=== PATIENT | male | born 1950 | race Caucasian/White ===

== ENCOUNTER → 2018-03-16 | Day surgery (SDC) | payer OTHER ==
[~2018-03-16] MED LIST: LISI10TA2 PO; PROPOFOL 60 ML IV ONE
[2018-03-16 17:37] VITALS: BP 115/71
--- NOTE | 2018-03-19 15:09 | PATHOLOGY ---
[facility] Accession Number: [id number] . 01 Material submitted: . PART A: SIGMOID POLYP PART B: ASCENDING COLON MASS BIOPSY . 01 Clinical history: . Screening . 02 Diagnosis: A. Colon biopsies, sigmoid polyp: - Tubulovillous adenoma, fragmented. . B. Colon biopsies, ascending colon mass: - High-grade dysplasia, suspicious for invasion. . - See comment. . (JPM:video editing intern/liza; 03/19/2018) MBR/03/19/2018 . 02 Comment: Sections of the sigoid colon biopsy reveal a tubulovillous adenoma. The adenoma is received in multiple fragments, the three largest of which range from 1.1 up to 1.5 cm in greatest dimension. There is no high-grade dysplasia or evidence of malignancy. . Sections of the ascending colon biopsy focally reveal irregular highly atypical glands associated with an inflamed reactive stroma. There are segments of acute inflammatory exudate consistent with ulceration. There are also segments of inflamed colonic mucosa and small segments of tubular adenoma showing high-grade dysplasia. The findings are suspicious for invasion. The diagnosis was relayed to nurse Tisha Conner on 03/19/2018 at 1pm. The case is also examined by Dr. Dasilva, who concurs with the diagnosis. . (JPM:video editing intern/liza; 03/19/2018) . . . . 02 Electronically signed: . Cem Dasilva MD, Pathologist NPI- [id number] . 01 Gross description: . A. Received in formalin labeled "Jordi Kerns, sigmoid polyp," is a 1.5 x 1.3 x 1.1 cm polypoid piece of gold soft tissue. The margin is inked and the specimen is sectioned perpendicular to the margin and entirely submitted in cassette A1. Additionally received in the same container is a 1.4 x 1.0 x 1.4 cm polypoid piece of gold soft tissue. The margin is inked and the specimen is sectioned perpendicular to the margin and entirely submitted in cassette A2. Also received in the container is a 1.1 x 0.8 x 0.9 cm polypoid piece of gold soft tissue. The margin is inked and the specimen is sectioned perpendicular to the margin and entirely submitted in cassette A3. Additionally received in the container are multiple segments of gold soft tissue measuring 1.5 x 1.1 x 0.4 cm in aggregate dimensions. The specimen is filtered and entirely submitted in cassette A4. . B. Received in formalin labeled "Saumya, Jordi, ascending colon mass BX," are multiple segments of gold soft tissue measuring 1.4 x 0.3 x 0.1 cm in aggregate dimensions. The specimen is filtered and entirely submitted in cassette B1. (TSD; 03/17/2018) TOB/TOB . 02 Pathologist provided ICD-10: D12.5, C18.2 . 02 CPT . 496131, 176706 Specimen Comment: A courtesy copy of this report has been sent to Specimen Comment: [phone], . Specimen Comment: Report sent to / DR BAPTISTE Specimen Comment: A duplicate report has been generated due to demographic updates. Performed at: 01 [facility] [address], [place] [id number] MD Vinod Ascencio MD Phone: [phone] Performed at: 02 [facility] [address] [place], [place] [id number] MD Jose Sagastume MD Phone: [phone]
== END | disposition home or self-care (01) ==
LOC: ENDOS 14:46
PROVIDERS: ATTEND Internal Medicine Gastroenterology
DX: Z12.11 Encounter for screening for malignant neoplasm of colon (principal); D12.5 Benign neoplasm of sigmoid colon; D12.2 Benign neoplasm of ascending colon; K64.0 First degree hemorrhoids; Z88.6 Allergy status to analgesic agent; K21.9 Gastro-esophageal reflux disease without esophagitis; I10 Essential (primary) hypertension; Z72.89 Other problems related to lifestyle; Z72.0 Tobacco use; Z79.899 Other long term (current) drug therapy; Z98.890 Other specified postprocedural states
CPT/HCPCS: 45380; 45381; 45385; 88305; J2704

== ENCOUNTER → 2018-03-22 | Outpatient (CLI) | payer OTHER ==
[2018-03-16 17:37] VITALS: BP 115/71
[~2018-03-22] MED LIST changes: -PROPOFOL 60 ML IV ONE
--- NOTE | 2018-03-22 15:35 | RAD ---
CT chest, abdomen and pelvis 03/22/2018 Clinical indications: Colon mass. COMPARISON: None. TECHNIQUE: Multiple CT images of the chest, abdomen and pelvis were obtained following the intravenous and ministration of 75 mL Omnipaque 300. *One or more of the following individualized dose reduction techniques were utilized for this examination: 1. Automated exposure control. 2. Adjustment of the mA and/or kV according to patient size. 3. Use of iterative reconstruction technique. FINDINGS: CHEST: Heart size is normal without significant pericardial effusion. The thoracic aorta is normal in caliber. Coronary artery calcifications are noted. No axillary or mediastinal or left hilar lymphadenopathy. Upper limits of normal right hilar lymph node measuring 1.0 cm short axis series 2/image 33. No suspicious noncalcified pulmonary nodules. No pleural effusion or pneumothorax. Dextro convex thoracic scoliosis. There are no destructive osseous lesions. Abdomen and pelvis: Liver, gallbladder, spleen, adrenal glands and pancreas unremarkable. There are multiple bilateral renal cysts, the largest on the right and the spirit pole measuring 6 cm. There are additional bilateral renal hypodensities which are too small to definitively characterize. Bilateral nonobstructive nephrolithiasis. Abdominal aorta normal in caliber with mild mixed aortoiliac atheromatous plaque. Major portal veins are patent. No retroperitoneal lymphadenopathy. There is a large circumferential irregular cecal soft tissue mass measuring up to 6.3 cm series 4/image 52 with extramural soft tissue extension inferiorly into the pericecal fat with contact to the right lower quadrant lateral abdominal wall series 4/image 61-63. There are few mildly prominent right lower quadrant pericecal lymph nodes series 4/image 48 and 54. Appendix normal in caliber. No bowel obstruction. No pneumoperitoneum. No abdominal free fluid. Mildly distended unopacified urinary bladder unremarkable. Moderate prostate enlargement. No iliac or inguinal lymphadenopathy. Mild perirectal stranding. Moderate to severe right and moderate left hip osteoarthritis. Levoconvex lumbar scoliosis. IMPRESSION: CHEST: 1. Mildly prominent right hilar lymph node, indeterminate between reactive and rey metastatic disease. 2. No pulmonary metastatic disease. Abdomen and pelvis: 1. Irregular cecal mass with extramural soft tissue extension which abuts the anterior abdominal wall. 2. Mild prominent pericecal lymph nodes, concerning for local rey metastatic disease. 3. Otherwise, no evidence of hepatic metastatic disease. 4. Multiple bilateral renal cysts and nephrolithiasis. 5. Moderate prostate enlargement. Correlation with PSA is recommended. 6. Mild perirectal stranding, may be reactive due to recent endoscopy, though nonspecific infectious/inflammatory proctitis is not excluded. Clinical correlation is recommended. Electronically signed by: Clif Lau MD (03/22/2018 3:31 PM) [id number]
== END | disposition home or self-care (01) ==
LOC: CT 08:55
PROVIDERS: ATTEND Internal Medicine Hematology & Oncology
DX: C18.7 Malignant neoplasm of sigmoid colon (principal); N40.0 Benign prostatic hyperplasia without lower urinary tract symptoms; N28.1 Cyst of kidney, acquired; N20.0 Calculus of kidney; M16.12 Unilateral primary osteoarthritis, left hip; M41.86 Other forms of scoliosis, lumbar region; I70.0 Atherosclerosis of aorta; I25.10 Atherosclerotic heart disease of native coronary artery without angina pectoris
CPT/HCPCS: 71260

== ENCOUNTER → 2018-10-15 | Outpatient (CLI) | payer OTHER ==
[2018-04-11 11:00] VITALS: BP 125/78
[~2018-10-15] MED LIST changes: +CETI10TA22 PO; +DOCU-109 PO; +LISI1TAB3 PO; +OXYC1TAB15 PO
--- NOTE | 2018-10-15 12:49 | RAD ---
Examination: MRI of the right knee without contrast HISTORY: History of chronic right knee pain COMPARISON: None available. FINDINGS: The anterior cruciate ligament, posterior cruciate ligament appear intact. There is blunting of the posterior horn of the medial meniscus. There is complete attenuation of the body of the medial meniscus. The lateral meniscus appears intact. Medial collateral ligament is intact. The lateral collateral ligamentous complex intact including the fibular collateral ligament, biceps femoris tendon, popliteus tendon appear intact. The medial, lateral retinaculum appear intact. Large knee joint effusion is identified. Complete cartilage loss identified in the medial compartment particularly in the weightbearing portion. There is deep fissuring of cartilage identified in the lateral, patellofemoral compartments. Moderate knee joint effusion. Large osteophyte formation identified in the medial compartment. Moderate size osteophyte formation identified in the lateral, patellofemoral compartments. The medial retinaculum, lateral retinaculum appear intact. IMPRESSION: 1. Complete attenuation of the body of the medial meniscus with blunting of the posterior horn of the medial meniscus could be old tear or degeneration. 2. Tricompartmental degenerative changes, most severe in the medial compartment. 3. Moderate knee joint effusion. Electronically signed by: Ramon High MD (10/15/2018 12:46 PM) [facility]
== END | disposition home or self-care (01) ==
LOC: MRI 10:35
PROVIDERS: ATTEND Family Medicine
DX: M17.11 Unilateral primary osteoarthritis, right knee (principal); M25.461 Effusion, right knee; M25.761 Osteophyte, right knee
CPT/HCPCS: 73721

== ENCOUNTER → 2019-04-01 | Outpatient (CLI) | payer OTHER ==
[2018-04-11 11:00] VITALS: BP 125/78
[~2019-04-01] MED LIST changes: +CONTRAST GIVEN. MC PRN; +IOHEXOL 300 MG/ML 100ML VIAL. IV ONE; +LISI1TAB23 PO; -LISI1TAB3 PO
[2019-04-01 09:09] LABS: BASO # 0.1 x10^3/uL (0.0-0.2); BASO % 0 % (0-3); EOS # 0.8 x10^3/uL (0.0-0.7); EOS % 6 % (0-3); HEMATOCRIT 48.2 % (39.0-53.0); HEMOGLOBIN 16.3 g/dL (13.0-17.5); LYMPH # 3.6 x10^3/uL (1.0-4.8); LYMPH % 27 % (24-48); MEAN CORPUSCULAR HEMOGLOBIN 30 pg (25-35); MEAN CORPUSCULAR HGB CONC 34 g/dL (31-37); MEAN CORPUSCULAR VOLUME 90 fL (79-100); MONO # 1.1 x10^3/uL (0.0-1.1); MONO % 8 % (0-9); NEUT # 7.9 x10^3/uL (1.8-7.7); NEUT % 59 % (31-73); PLATELET COUNT 339 x10^3/uL (140-400); RED BLOOD COUNT 5.35 x10^6/uL (4.30-5.70); RED CELL DISTRIBUTION WIDTH 13.8 % (11.5-14.5); WHITE BLOOD COUNT 13.5 x10^3/uL (4.0-11.0)
[2019-04-01 09:31] LABS: ALBUMIN 4.1 g/dL (3.4-5.0); ALBUMIN/GLOBULIN RATIO 0.9 (1.0-1.7); CALCIUM 9.5 mg/dL (8.5-10.1); CREATININE 1.4 mg/dL (0.7-1.3); GFR 50.7; TOTAL BILIRUBIN 0.4 mg/dL (0.2-1.0); TOTAL PROTEIN 8.5 g/dL (6.4-8.2)
--- NOTE | 2019-04-01 19:47 | RAD ---
Examination: CT CHEST W/CONTRAST History: Abnormal mediastinal lymph node. Colon cancer. Comparison/Correlation: 03/22/2018 CT chest abdomen and pelvis with contrast, 09/28/2018 CT chest abdomen and pelvis with contrast Findings: Axial images of the chest were obtained following IV contrast. Sagittal and coronal reformatted images were provided. Aortopulmonary window lymph node measuring up to 1 cm short axis diameter is present but the hilum is delineated and unremarkable. No significant change compared 03/22/2018 CT chest with contrast.. Nonenlarged right paratracheal lymph nodes are present. Other nonenlarged superior mediastinal lymph nodes are present and smaller in size. Nonenlarged bilateral axillary lymph nodes are present. Linear atelectasis or scarring at the posterior right lung base is present. Mild bronchial wall thickening of the lower lung elizondo may represent mild chronic bronchitis. Partially visualized upper abdomen is unremarkable other than multiple right renal cysts and smaller lesions involving the left kidney which are probably cysts but too small to optimally assess. Reversal of thoracic kyphosis is evident similar to prior exam. Impression: No change in thoracic lymph nodes compared to 03/22/2018. No new lymph nodes or suspicious change. Minimal linear scarring or atelectasis at the right lung field is greater as compared to 09/28/2018. No suspicious mass delineated PQRS Compliance Statement: One or more of the following individualized dose reduction techniques were utilized for this examination: 1. Automated exposure control 2. Adjustment of the mA and/or kV according to patient size 3. Use of iterative reconstruction technique Electronically signed by: Surya Breen MD (04/01/2019 7:44 PM) [facility]
== END ==
LOC: CT 08:39
PROVIDERS: ATTEND Internal Medicine Hematology & Oncology
DX: C18.2 Malignant neoplasm of ascending colon (principal); M40.294 Other kyphosis, thoracic region; N28.1 Cyst of kidney, acquired; F17.200 Nicotine dependence, unspecified, uncomplicated; K21.9 Gastro-esophageal reflux disease without esophagitis; I12.9 Hypertensive chronic kidney disease with stage 1 through stage 4 chronic kidney disease, or unspecified chronic kidney disease; N18.9 Chronic kidney disease, unspecified
CPT/HCPCS: 36415; 71260; 80053; 82378; 85025; Q9967

== ENCOUNTER → 2019-06-29 | Day surgery (SDC) | payer MEDICARE ==
[~2019-06-29] MED LIST changes: -CETI10TA22 PO; +CETI10TA24 PO; -CONTRAST GIVEN. MC PRN; -IOHEXOL 300 MG/ML 100ML VIAL. IV ONE; +IV RINGERS,LACTATED 1000ML 1,000 ML IV SCH; +LIDOCAINE 2% PF 5 ML VIAL. ONE; +PROPOFOL 20 ML IV ONE
[2019-06-29 08:59] VITALS: BP 118/76
--- NOTE | 2019-06-29 10:28 | CONS ---
DATE OF CONSULTATION: 06/29/2019 REFERRING PHYSICIAN: Shana Brown MD REASON: Followup on colon cancer. HISTORY OF PRESENT ILLNESS: A 68-year-old male with past medical history significant for colon cancer, high blood pressure, seen for interval colon exam. The patient underwent ascending colon resection, has done well since with negative margins. Bowel habits are regular. There has been no bleeding. Weight and appetite are stable. He is otherwise without additional complaints. PAST MEDICAL HISTORY: Colon cancer and hypertension. ALLERGIES: TRAMADOL. MEDICATIONS: Include Zyrtec, lisinopril, hydrochlorothiazide. FAMILY HISTORY: Noncontributory. SOCIAL HISTORY: He is a social drinker and smoker. PAST SURGICAL HISTORY: Significant for back surgery and colon resection. REVIEW OF SYSTEMS: Per records. PHYSICAL EXAMINATION: GENERAL: Reveals a well-nourished, well-developed male. VITAL SIGNS: Temperature is 98, pulse 112, respirations 20. LUNGS: Clear. CARDIOVASCULAR: Reveals an S1, S2 without S3, S4 or appreciable murmur. ABDOMEN: Reveals a soft abdomen, normal bowel sounds, without appreciable hepatosplenomegaly. EXTREMITIES: Reveals no cyanosis, clubbing or edema. IMPRESSION: History of colon cancer, status post resection. Interval exam is recommended. Risks and benefits of procedure including risk of perforation have been discussed. The patient is willing to proceed at this time. LIO FULTON MD DR: INO/raleigh JOB#: [id number] / [id number]
--- NOTE | 2019-06-30 14:07 | PATHOLOGY ---
[facility] Accession Number: [id number] . 01 Material submitted: . sigmoid colon - SIGMOID POLYP . 01 Clinical history: . History of colorectal cancer . 02 Diagnosis: Sigmoid colon polypectomy: - Tubulovillous adenoma, predominantly tubular. (JPM:liza; 06/30/2019) S 06/30/2019 0959 Local . 02 Comment: There is no high grade dysplasia or evidence of malignancy. The base of the polyp is lined by colonic mucosa showing coagulative changes. (JPM:liza; 06/30/2019) . 02 Electronically signed: . Jose Sagastume MD, Pathologist NPI- [id number] . 01 Gross description: . The specimen is received in formalin, labeled "Jordi Kerns, sigmoid polyp". Received is a segment of dark brown soft tissue measuring 1.0 x 0.8 x 0.8 cm in greatest dimensions. The surgical margin is inked. The specimen is trisected perpendicular to the margin and entirely submitted in cassette A1. ([facility]; 06/29/2019) QA/QA 06/29/2019 1525 Local . 02 Pathologist provided ICD-10: D12.5 . 02 CPT . 785399 Specimen Comment: A courtesy copy of this report has been sent to [phone], [phone] Specimen Comment: [id number] Specimen Comment: Report sent to / DR PATTERSON Performed at: 01 [facility] [address], [place] [id number] MD Vinod Ascencio MD Phone: [phone] Performed at: 02 [facility] [address] [place], [place] [id number] MD Jose Sagastume MD Phone: [phone]
== END | disposition home or self-care (01) ==
LOC: ENDOS 07:20
PROVIDERS: ATTEND Internal Medicine Gastroenterology
DX: Z12.11 Encounter for screening for malignant neoplasm of colon (principal); D12.5 Benign neoplasm of sigmoid colon; K64.0 First degree hemorrhoids; K57.30 Diverticulosis of large intestine without perforation or abscess without bleeding; I10 Essential (primary) hypertension; F17.200 Nicotine dependence, unspecified, uncomplicated; Z88.6 Allergy status to analgesic agent; Z85.038 Personal history of other malignant neoplasm of large intestine; Z72.89 Other problems related to lifestyle; Z90.49 Acquired absence of other specified parts of digestive tract
CPT/HCPCS: 45385; 88305; J2001; J2704; 45382

== ENCOUNTER 2019-12-12 17:29 | Emergency (ER) | payer MEDICARE ==
[~2019-12-12] VITALS: Ht 182.9 cm; Wt 88.6 kg
[~2019-12-12 17:29] MED LIST changes: -CETI10TA24 PO; +CETI10TA74 PO; -IV RINGERS,LACTATED 1000ML 1,000 ML IV SCH; -LIDOCAINE 2% PF 5 ML VIAL. ONE; -PROPOFOL 20 ML IV ONE
[2019-12-12] MEDS ORDERED: HYDROcodone/APAP 5/325MG 1 TAB TABLET PO ONE (18:30)
[2019-12-12 18:46] LABS: BASO # 0.1 x10^3/uL (0.0-0.2); BASO % 0 % (0-3); EOS # 0.6 x10^3/uL (0.0-0.7); EOS % 4 % (0-3); HEMATOCRIT 45.2 % (39.0-53.0); HEMOGLOBIN 15.6 g/dL (13.0-17.5); LYMPH # 2.7 x10^3/uL (1.0-4.8); LYMPH % 18 % (24-48); MEAN CORPUSCULAR HEMOGLOBIN 31 pg (25-35); MEAN CORPUSCULAR HGB CONC 35 g/dL (31-37); MEAN CORPUSCULAR VOLUME 89 fL (79-100); MONO % 7 % (0-9); NEUT # 10.7 x10^3/uL (1.8-7.7); NEUT % 71 % (31-73); PLATELET COUNT 393 x10^3/uL (140-400); RED BLOOD COUNT 5.09 x10^6/uL (4.30-5.70); RED CELL DISTRIBUTION WIDTH 13.9 % (11.5-14.5)
--- NOTE | 2019-12-12 18:46 | PHYS DOC ---
Past Medical History Past Medical History: Hypertension Past Surgical History: No Surgical History Smoking Status: Current Every Day Smoker Alcohol Use: None General Adult EDM: Chief Complaint: KNEE INJURY HPI: HPI: The history was obtained from the patient. Patient is a 69-year-old male with PMH chronic osteoarthritis, hypertension who presents with a chief complaint of right knee pain. Patient states he has had right knee pain for several months to years. He states the pain seemed to have worsened approximately 6 days ago. Denies trauma or injury. States he was seen at his primary care physician's office where x-rays were performed. He states he was told that he has "[id number]." He states he was given some sort of intramuscular injection that did relieve his pain temporarily. He is unsure the name of this medication. Denies any joint injection. Denies history of joint replacement. Denies fevers. Does note some swelling to the right knee and right foot. Denies overlying redness. States he is able to ambulate with the assistance of a walker. He states this is not a change from his baseline. Denies syncope. States he has not followed up with an orthopedist. States he has tried Tylenol 3 at home with minimal relief. States the pain is aching in nature. States he is unable to extend his right knee completely however he states this is not abnormal for him. He has no other complaints Review of Systems: Review of Systems: Constitutional: Denies fever or chills. [] Eyes: Denies change in visual acuity. [] HENT: Denies nasal congestion or sore throat. [] Respiratory: Denies cough or shortness of breath. [] Cardiovascular: Denies chest pain or edema. [] GI: Denies abdominal pain, nausea, vomiting, bloody stools or diarrhea. [] : Denies dysuria. [] Musculoskeletal: Positive for joint pain Integument: Denies rash. [] Neurologic: Denies headache, focal weakness or sensory changes. [] Endocrine: Denies polyuria or polydipsia. [] Lymphatic: Denies swollen glands. [] Psychiatric: Denies depression or anxiety. [] Heart Score: Risk Factors: Risk Factors: DM, Current or recent (<one month) smoker, HTN, HLP, family history of CAD, obesity. Risk Scores: Score 0 - 3: 2.5% MACE over next 6 weeks - Discharge Home Score 4 - 6: 20.3% MACE over next 6 weeks - Admit for Clinical Observation Score 7 - 10: 72.7% MACE over next 6 weeks - Early Invasive Strategies Current Medications: Current Medications Medications (Trade) Dose Ordered Sig/[facility] Start Time Stop Time Status Last Admin Dose Admin Acetaminophen/ Hydrocodone Bitart (Lortab 5/325) 2 tab 1X ONCE 12/12/19 18:30 12/12/19 18:31 DC Allergies: Allergies: Allergies Coded Allergies Type Severity Reaction Last Updated Verified tramadol Allergy Intermediate Rash 06/29/19 Yes Physical Exam: PE: Constitutional: Well developed, well nourished, no acute distress, non-toxic appearance. [] HENT: Normocephalic, atraumatic, bilateral external ears normal, oropharynx moist, no oral exudates, nose normal. [] Eyes: PERRLA, EOMI, conjunctiva normal, no discharge. [] Neck: Normal range of motion, no tenderness, supple, no stridor. [] Cardiovascular:Heart rate regular rhythm, no murmur +1-4 pitting edema in the right foot Lungs & Thorax: Bilateral breath sounds clear to auscultation [] Abdomen: Bowel sounds normal, soft, no tenderness, no masses, no pulsatile masses. [] Skin: Warm, dry, no erythema, no rash. [] Back: No tenderness, no CVA tenderness. [] Extremities: R Knee Erythema not present. Warmth not present. Effusion present. Anterior drawer is intact. Posterior drawer is intact. Varus testing is intact. Valgus testing is intact. Knee extension is limited secondary to pain. (baseline). DNVI (DP pulse 2+, plantar and dorsiflexion intact, light touch intact). Neurologic: Alert and oriented X 3, normal motor function, normal sensory function, no focal deficits noted. [] Psychologic: Affect normal, judgement normal, mood normal. [] Current Patient Data: Labs: Laboratory Tests Test 12/12/19 18:35 12/12/19 20:33 White Blood Count 15.0 x10^3/uL Red Blood Count 5.09 x10^6/uL Hemoglobin 15.6 g/dL Hematocrit 45.2 % Mean Corpuscular Volume 89 fL Mean Corpuscular Hemoglobin 31 pg Mean Corpuscular Hemoglobin Concent 35 g/dL Red Cell Distribution Width 13.9 % Platelet Count 393 x10^3/uL Neutrophils (%) (Auto) 71 % Lymphocytes (%) (Auto) 18 % Monocytes (%) (Auto) 7 % Eosinophils (%) (Auto) 4 % Basophils (%) (Auto) 0 % Neutrophils # (Auto) 10.7 x10^3/uL Lymphocytes # (Auto) 2.7 x10^3/uL Monocytes # (Auto) 1.0 x10^3/uL Eosinophils # (Auto) 0.6 x10^3/uL Basophils # (Auto) 0.1 x10^3/uL Sodium Level 140 mmol/L Potassium Level 4.1 mmol/L Chloride Level 101 mmol/L Carbon Dioxide Level 29 mmol/L Anion Gap 10 Blood Urea Nitrogen 19 mg/dL Creatinine 1.4 mg/dL Estimated GFR (Cockcroft-Gault) 50.5 Glucose Level 93 mg/dL Calcium Level 9.2 mg/dL C-Reactive Protein, Quantitative 15.2 mg/L LY-Zpm-E-Type Natriuretic Peptide 110 pg/mL Body Fluid Source Synovial Body Fluid Color Red Body Fluid Clarity Turbid Body Fluid Nucleated Cells 800 /cmm Body Fluid Mononuclear WBCs (%) 44 % Body Fluid Polymorphonuclear Cells 56 % Body Fluid Total RBCs Counted 74454 /cmm Current Medications Medications (Trade) Dose Ordered Sig/Sarah Route PRN Reason Start Time Stop Time Status Last Admin Dose Admin Acetaminophen/ Hydrocodone Bitart (Lortab 5/325) 2 tab 1X ONCE PO 12/12/19 18:30 12/12/19 18:31 DC 12/12/19 18:43 Iohexol (Omnipaque 300 Mg/ml) 60 ml 1X ONCE IV 12/12/19 19:00 12/12/19 19:03 DC 12/12/19 19:23 Info (CONTRAST GIVEN -- Rx MONITORING) 1 each PRN DAILY PRN MC SEE COMMENTS 12/12/19 19:15 12/14/19 19:14 Vital Signs: Vital Signs Date Time Temp Pulse Resp B/P (MAP) Pulse Ox O2 Delivery O2 Flow Rate FiO2 12/12/19 17:44 98.0 96 20 153/87 (109) 95 Room Air 98.0 EKG: EKG: [] Radiology/Procedures: Radiology/Procedures: The indication, was to rule-out septic arthritis of the knee, as well as to further evaluate for the cause of the patient's effusion, such as gout or pseudogout. The risks (infection, bleeding, pain, etc) and the benefits were discussed with the patient, and verbal consent was given to proceed. Prior to the procedure, I placed LET over the lateral aspect of the knee, towards the inferior edge of the patella, and about 1 cm lateral.. The appropriate land lee were identified. Once the skin was anesthetized, the skin area was sterilized with Betadine. Then using a sterile 18g needle, and sterile technique, I then inserted the needle, while withdrawing on the syringe plunger. 10 mLs of serosanguineous synovial fluid was obtained. This was sent down to the lab for joint analysis, as well as for culture. A dressing was placed, and the patient tolerated the procedure well. My repeat neurovascular exam post-procedure was unchanged. Instructions were given to seek immediate care for increasing pain, increasing redness, streaking, or any other worrisome concerns. [facility] [address] [place] [address] IMAGING REPORT Signed PATIENT: CHARLY SY ACCOUNT: [id number] : 1950 LOCATION: ER AGE: 69 SEX: M EXAM STATUS: REG ER ORD. PHYSICIAN: ANUSHA RUGGIERO DO REASON: RLE swelling PROCEDURE: VENOUS LOWER EXTREMITY RIGHT VENOUS LOWER EXTREMITY RIGHT History: Reason: RLE swelling / Spl. Instructions: / History: Comparison: None. Discussion: Multiple longitudinal and transverse high resolution real-time images of the venous system of right lower extremity were obtained with color and Doppler sampling. The common femoral, superficial femoral, popliteal and proximal calf veins are all patent and demonstrate normal flow and compressibility. Normal respiratory phasicity and augmentation is present. Fluid collection superior medial to the patella measures approximately 6.2 x 1.9 cm. Impression: 1. No evidence of deep vein thrombosis. 2. Nonspecific fluid collection superior and medial to the patella. Recommend correlation for infection to rule out abscess. Electronically signed by: Dewayne Galaviz DO (12/12/2019 7:24 PM) [facility] DICTATED and SIGNED BY: DEWAYNE GALAVIZ DO DATE: 12/12/191923 [facility] [address] [place] [address] IMAGING REPORT Signed PATIENT: CHARLY SY ACCOUNT: [id number] : 1950 LOCATION: ER AGE: 69 SEX: M EXAM STATUS: REG ER ORD. PHYSICIAN: ANUSHA RUGGIERO DO REASON: RLE swelling and redness from knee downward PROCEDURE: CT LOW EXTREMITY W/CONTRAST RT CT LOW EXTREMITY W/CONTRAST RT History: Reason: RLE swelling and redness from knee downward / Spl. Instructions: OMNI 300 INJ 60 MLS / History: Comparison: None. Technique: CT imaging was performed of the right lower extremity with contrast. Coronal and sagittal reconstructions were performed. Exposure: One or more of the following individualized dose reduction techniques were utilized for this examination: 1. Automated exposure control 2. Adjustment of the mA and/or kV according to patient size 3. Use of iterative reconstruction technique. Findings: Moderate knee joint effusion corresponding with ultrasound fluid collection. Advanced knee degenerative changes most prominent within the medial and patellofemoral compartments. Normal alignment. No fracture. Mild tendinous structures are grossly intact. Distal lower extremity subcutaneous edema. No fluid collection to suggest abscess. Impression: 1. Mild distal lower extremity subcutaneous edema. No subcutaneous fluid collection to suggest abscess. 2. Moderate knee joint effusion. 3. Advanced right knee DJD. Electronically signed by: Dewayne Galaviz DO (12/12/2019 7:49 PM) [facility] DICTATED and SIGNED BY: DEWAYNE GALAVIZ DO DATE: 12/12/191948 Course & Med Decision Making: Course & Med Decision Making Pertinent Labs and Imaging studies reviewed. (See chart for details) Patient is a 69-year-old male who presents with chief complaint of acute on chronic right knee pain. Initial vital signs unremarkable. Physical exam noted above. CT imaging of the right lower extremity was obtained to evaluate for potential infection. This was negative for fluid collection. Clinically the patient does have very mild early cellulitis of the dorsal aspect of his right foot. Right knee did have limitations in range of motion. Furthermore he did have a mild leukocytosis of 15,000 with moderate knee joint effusion appreciated. Right knee arthrocentesis was performed. Synovial fluid analysis not consistent with septic arthritis. Likely inflammatory nature secondary to his arthritis. Pain was well controlled in the emergency department. He is able to ambulate. I do feel is reasonable to discharge patient home with close follow-up. Synovial fluid cultures are pending. He will be discharged home with short course of Keflex for his early cellulitis. He was instructed to follow-up with his primary care physician and will be given referral to an orthopedic surgeon for potential knee replacement in the future. Return precautions discussed and understood by patient and . Patient agreeable to plan. Stable for discharge home. Dragon Disclaimer: Dragon Disclaimer: This electronic medical record was generated, in whole or in part, using a voice recognition dictation system. Departure Departure Impression: Primary Impression: Right knee pain Qualified Codes: M25.561 - Pain in right knee Additional Impression: Cellulitis of right foot Referrals: BHANU PATTERSON MD (PCP) MITCHELL DODGE MD Patient Instructions: Cellulitis Additional Instructions: Please follow-up with your primary care physician in the next 2 to 3 days. Scripts Cephalexin (KEFLEX) 500 Mg Capsule 1 CAP PO BID for 7 Days, #14 CAP 0 Refills Prov: ANUSHA RUGGIERO DO 12/12/19 Hydrocodone/Apap 5-325 (NORCO 5-325 TABLET) 1 Each Tablet 1-2 EACH PO PRN Q6HRS PRN for PAIN, #10 as needed for pain Prov: ANUSHA RUGGIERO DO 12/12/19 Justicifation of Admission Dx: Justifications for Admission: Justification of Admission Dx: N/A ANUSHA RUGGIERO DO Dec 12, 2019 18:46
[2019-12-12 18:53] LABS: CALCIUM 9.2 mg/dL (8.5-10.1); CREATININE 1.4 mg/dL (0.7-1.3); GFR 50.5; POTASSIUM 4.1 mmol/L (3.5-5.1)
[2019-12-12] MEDS ORDERED: IOHEXOL 300 MG/ML 100ML VIAL. IV ONE (19:00)
[2019-12-12] MEDS ORDERED: CONTRAST GIVEN. MC PRN (19:15)
--- NOTE | 2019-12-12 19:26 | RAD ---
VENOUS LOWER EXTREMITY RIGHT History: Reason: RLE swelling / Spl. Instructions: / History: Comparison: None. Discussion: Multiple longitudinal and transverse high resolution real-time images of the venous system of right lower extremity were obtained with color and Doppler sampling. The common femoral, superficial femoral, popliteal and proximal calf veins are all patent and demonstrate normal flow and compressibility. Normal respiratory phasicity and augmentation is present. Fluid collection superior medial to the patella measures approximately 6.2 x 1.9 cm. Impression: 1. No evidence of deep vein thrombosis. 2. Nonspecific fluid collection superior and medial to the patella. Recommend correlation for infection to rule out abscess. Electronically signed by: Dewayne Galaviz DO (12/12/2019 7:24 PM) [facility]
--- NOTE | 2019-12-12 19:52 | RAD ---
CT LOW EXTREMITY W/CONTRAST RT History: Reason: RLE swelling and redness from knee downward / Spl. Instructions: OMNI 300 INJ 60 MLS / History: Comparison: None. Technique: CT imaging was performed of the right lower extremity with contrast. Coronal and sagittal reconstructions were performed. Exposure: One or more of the following individualized dose reduction techniques were utilized for this examination: 1. Automated exposure control 2. Adjustment of the mA and/or kV according to patient size 3. Use of iterative reconstruction technique. Findings: Moderate knee joint effusion corresponding with ultrasound fluid collection. Advanced knee degenerative changes most prominent within the medial and patellofemoral compartments. Normal alignment. No fracture. Mild tendinous structures are grossly intact. Distal lower extremity subcutaneous edema. No fluid collection to suggest abscess. Impression: 1. Mild distal lower extremity subcutaneous edema. No subcutaneous fluid collection to suggest abscess. 2. Moderate knee joint effusion. 3. Advanced right knee DJD. Electronically signed by: Dewayne Galaviz DO (12/12/2019 7:49 PM) [facility]
[2019-12-12 21:33] LABS: BF CLARITY TURBID; BF COLOR RED; BF MON % 44 %; BF PMN % 56 %; BF RBC COUNT 18500 /cmm (Not Established); BF SOURCE SYNOVIAL; BF WBC COUNT 800 /cmm (Not Established)
[2019-12-12] MEDS ORDERED: HYDR-3164 PO (21:46)
[2019-12-12] MEDS ORDERED: CEPH-264 PO (21:46)
[2019-12-12 22:29] VITALS: BP 156/80
== END 2019-12-12 22:35 | disposition home or self-care (01) ==
LOC: ER 17:29
DX: M25.561 Pain in right knee (principal); L03.115 Cellulitis of right lower limb; G89.29 Other chronic pain; M17.11 Unilateral primary osteoarthritis, right knee; I10 Essential (primary) hypertension; F17.200 Nicotine dependence, unspecified, uncomplicated; Z88.6 Allergy status to analgesic agent
CPT/HCPCS: 20610; 36415; 73701; 80048; 83880; 85025; 86140; 87070; 89050; 93971; 99285; Q9967

== ENCOUNTER 2020-07-07 09:47 | Emergency (ER) | payer MEDICARE ==
[~2020-07-07] VITALS: Ht 182.9 cm; Wt 90.0 kg
[~2020-07-07 09:47] MED LIST changes: +CEPH-264 PO; +HYDR-3164 PO; +LISI10TA16 PO; -LISI10TA2 PO
[2020-07-07 10:00] VITALS: BP 168/84
[2020-07-07] MEDS ORDERED: IPRATRPIUM/ALBUTEROL 0.5/2.5MG 3 ML NEBU. NEB ONE (10:30)
[2020-07-07 10:39] LABS: BASO % 0 % (0-3); EOS # 0.6 x10^3/uL (0.0-0.7); EOS % 5 % (0-3); HEMATOCRIT 49.2 % (39.0-53.0); HEMOGLOBIN 16.4 g/dL (13.0-17.5); LYMPH # 2.2 x10^3/uL (1.0-4.8); LYMPH % 16 % (24-48); MEAN CORPUSCULAR HEMOGLOBIN 30 pg (25-35); MEAN CORPUSCULAR HGB CONC 33 g/dL (31-37); MEAN CORPUSCULAR VOLUME 91 fL (79-100); MONO # 1.1 x10^3/uL (0.0-1.1); MONO % 9 % (0-9); NEUT # 9.2 x10^3/uL (1.8-7.7); NEUT % 70 % (31-73); PLATELET COUNT 317 x10^3/uL (140-400); RED BLOOD COUNT 5.43 x10^6/uL (4.30-5.70); RED CELL DISTRIBUTION WIDTH 14.4 % (11.5-14.5); WHITE BLOOD COUNT 13.2 x10^3/uL (4.0-11.0)
[2020-07-07 10:51] LABS: CALCIUM 8.9 mg/dL (8.5-10.1); CREATININE 1.3 mg/dL (0.7-1.3); GFR 55.1; POTASSIUM 4.1 mmol/L (3.5-5.1)
[2020-07-07 10:55] LABS: INFLUENZA A PATIENT NEGATIVE (NEGATIVE); INFLUENZA B PATIENT NEGATIVE (NEGATIVE)
[2020-07-07 10:57] LABS: TOTAL BILIRUBIN 0.7 mg/dL (0.2-1.0)
--- NOTE | 2020-07-07 10:59 | RAD ---
Exam performed: One view chest. Indication: Reason: SOB / Spl. Instructions: / History: Date of Service: 07/07/2020 10:31 AM Comparison: None available CT chest from April 01, 2019. Single AP upright portable view chest findings: Cardiomediastinal silhouette is within limits of normal. Lungs are somewhat hyperinflated. No acute i nfiltrates, effusion or pneumothorax is detected. The bony structures are normal. Impression: No acute cardiopulmonary process is detected. Electronically signed by: Catina Newton MD (07/07/2020 10:56 AM) [id number]
--- NOTE | 2020-07-07 11:03 | PHYS DOC ---
Past Medical History Past Medical History: COPD, Heart Disease, Hypertension, Kidney Stone Additional Past Medical Histor: COLON CA Past Surgical History: Appendectomy, Cancer Surgery Smoking Status: Current Every Day Smoker Alcohol Use: None Adult General Chief Complaint Chief Complaint: SHORTNESS OF BREATH [facility] HPI Patient is a 69 year old male with past medical history of COPD and hypertensio n now presents emergency department complaint of new onset of shortness of breath. Patient states over the last 3 days he has had a new onset of flulike illness which consists of new onset of mild intermittent nonproductive cough as well as an intermittent sensation of shortness of breath. Patient states over the last 2 days he has noted that he has been having worsening sensations of shortness of breath primarily when he lays down for sleep. States that this morning at approximately 2 AM he was woken up with a coughing fit and was having difficulty catching his breath. Currently denying any chest pain, dizziness, lightheadedness, fever or chills. Review of Systems Review of Systems Constitutional: Denies fever or chills [] Eyes: Denies change in visual acuity, redness, or eye pain [] HENT: Denies nasal congestion or sore throat [] Respiratory: Denies cough or shortness of breath [] Cardiovascular: No additional information not addressed in HPI [] GI: Denies abdominal pain, nausea, vomiting, bloody stools or diarrhea [] : Denies dysuria or hematuria [] Musculoskeletal: Denies back pain or joint pain [] Integument: Denies rash or skin lesions [] Neurologic: Denies headache, focal weakness or sensory changes [] Endocrine: Denies polyuria or polydipsia [] All other systems were reviewed and found to be within normal limits, except as documented in this note. Current Medications Current Medications Current Medications Medications (Trade) Dose Ordered Sig/Sarah Start Time Stop Time Status Last Admin Dose Admin Albuterol/ Ipratropium (Duoneb) 3 ml 1X ONCE 07/07/20 10:30 07/07/20 10:31 DC 07/07/20 10:52 3 ML Allergies Allergies Allergies Coded Allergies Type Severity Reaction Last Updated Verified tramadol Allergy Intermediate Rash 06/29/19 Yes Physical Exam Physical Exam Constitutional: Well developed, well nourished, no acute distress, non-toxic appearance. [] HENT: Normocephalic, atraumatic, bilateral external ears normal, oropharynx moist, no oral exudates, nose normal. [] Eyes: PERRLA, EOMI, conjunctiva normal, no discharge. [] Neck: Normal range of motion, no tenderness, supple, no stridor. [] Cardiovascular:Heart rate regular rhythm, no murmur [] Lungs & Thorax: Bilateral breath sounds clear to auscultation [] Abdomen: Bowel sounds normal, soft, no tenderness, no masses, no pulsatile masses. [] Skin: Warm, dry, no erythema, no rash. [] Back: No tenderness, no CVA tenderness. [] Extremities: No tenderness, no cyanosis, no clubbing, ROM intact, no edema. [] Neurologic: Alert and oriented X 3, normal motor function, normal sensory function, no focal deficits noted. [] Psychologic: Affect normal, judgement normal, mood normal. [] Current Patient Data Vital Signs Vital Signs Date Time Temp Pulse Resp B/P (MAP) Pulse Ox O2 Delivery O2 Flow Rate FiO2 07/07/20 10:53 98 Room Air 07/07/20 10:00 97.9 24 168/84 (112) 97.9 Lab Values Laboratory Tests Test 07/07/20 10:05 07/07/20 10:14 Influenza Type A Antigen Negative (NEGATIVE) Influenza Type B Antigen Negative (NEGATIVE) White Blood Count 13.2 x10^3/uL (4.0-11.0) H Red Blood Count 5.43 x10^6/uL (4.30-5.70) Hemoglobin 16.4 g/dL (13.0-17.5) Hematocrit 49.2 % (39.0-53.0) Mean Corpuscular Volume 91 fL (79-100) Mean Corpuscular Hemoglobin 30 pg (25-35) Mean Corpuscular Hemoglobin Concent 33 g/dL (31-37) Red Cell Distribution Width 14.4 % (11.5-14.5) Platelet Count 317 x10^3/uL (140-400) Neutrophils (%) (Auto) 70 % (31-73) Lymphocytes (%) (Auto) 16 % (24-48) L Monocytes (%) (Auto) 9 % (0-9) Eosinophils (%) (Auto) 5 % (0-3) H Basophils (%) (Auto) 0 % (0-3) Neutrophils # (Auto) 9.2 x10^3/uL (1.8-7.7) H Lymphocytes # (Auto) 2.2 x10^3/uL (1.0-4.8) Monocytes # (Auto) 1.1 x10^3/uL (0.0-1.1) Eosinophils # (Auto) 0.6 x10^3/uL (0.0-0.7) Basophils # (Auto) 0.0 x10^3/uL (0.0-0.2) Sodium Level 142 mmol/L (136-145) Potassium Level 4.1 mmol/L (3.5-5.1) Chloride Level 103 mmol/L (98-107) Carbon Dioxide Level 28 mmol/L (21-32) Anion Gap 11 (6-14) Blood Urea Nitrogen 18 mg/dL (8-26) Creatinine 1.3 mg/dL (0.7-1.3) Estimated GFR (Cockcroft-Gault) 55.1 BUN/Creatinine Ratio 14 (6-20) Glucose Level 102 mg/dL (70-99) H Calcium Level 8.9 mg/dL (8.5-10.1) Total Bilirubin 0.7 mg/dL (0.2-1.0) Aspartate Amino Transferase (AST) 19 U/L (15-37) Alanine Aminotransferase (ALT) 29 U/L (16-63) Alkaline Phosphatase 95 U/L (46-116) Creatine Kinase 95 U/L (39-308) Troponin I Quantitative < 0.017 ng/mL (0.000-0.055) FY-Hou-Q-Type Natriuretic Peptide 60 pg/mL (0-124) Total Protein 8.0 g/dL (6.4-8.2) Albumin 4.0 g/dL (3.4-5.0) Albumin/Globulin Ratio 1.0 (1.0-1.7) Laboratory Tests 07/07/20 10:14 Laboratory Tests 07/07/20 10:14 EKG EKG [] Radiology/Procedures Radiology/Procedures [] Course & Med Decision Making Course & Med Decision Making Pertinent Labs and Imaging studies reviewed. (See chart for details) 69M presenting with nonspecific episode of coughing and sensation of shortness of breath. Also given her syndrome given the patient's age will obtain ACS wor k-up and chest x-ray to make sure there is no evidence of underlying pneumonia or CHF. 12:42 -patient's respiratory status is dramatically improved since initial evaluation. No wheezing on physica exam and lung sounds are normal. Vital signs also within normal limits. Labs reviewed and unremarkable. Chest x-ray without any significant findings. At this time will discharge home with symptomatic Dragon Disclaimer Dragon Disclaimer This electronic medical record was generated, in whole or in part, using a voice recognition dictation system. Departure Departure Impression: Primary Impression: Viral syndrome Disposition: 01 DC HOME SELF CARE/HOMELESS Condition: GOOD Referrals: FABIENNE LAI MD Patient Instructions: Viral Syndrome Additional Instructions: EMERGENCY DEPARTMENT GENERAL DISCHARGE INSTRUCTIONS Thank you for coming to [facility] Emergency Department (ED) today and trusting us with you care. We trust that you had a positive experience in our Emergency Department. If you wish to speak to the department management, you may call the Director at [phone]. YOUR FOLLOW UP INSTRUCTIONS ARE FOLLOWS: 1. Do you have a private Doctor? If you do not have a private doctor, please ask for a resource list of physicians or clinics that may be able to assist you with follow up care. 2. The Emergency Physicain has interpreted your x-rays. The X-Ray specialist will also review them. If there is a change in the findings, you will be notified in 48 hours when at all possible. 3. A lab test or culture has been done, your results will be reviewed and you will be notified if you need a change in treatment. ADDITIONAL INSTRUCTIONS AND INFORMATION: 1. Your care today has been supervised by a physician who is specially trained in emergency care. Many problems require more than one evaluation for a complete diagnosis and treatment. We recommend that you schedule your follow up appointment as recommended to ensure complete treatment of you illness or injury. If you are unable to obtain follow up care and continue to have a problem, or if your condition worsens, we recommend that you return to the ED. 2. We are not able to safely determine your condition over the phone nor are we able to give sound medical advice over the phone. For these safety reasons, if you call for medical advice we will ask you to come to the ED for further evaluation. 3. If you have any questions regarding these discharge instructions please call the ED at [phone]. SAFETY INFORMATION: In the interest of safety, wellness, and injury prevention; we encourage you to wear your sealbelt, if you smoke; quite smoking, and we encourage family to use a protective helmet for bicycling and other sporting events that present an increased risk for head injury. IF YOUR SYMPTOMS WORSEN OR NEW SYMPTOMS DEVELOP, OR YOU HAVE CONCERNS ABOUT YOUR CONDITION; OR IF YOUR CONDITION WORSENS WHILE YOU ARE WAITING FOR YOUR FOLLOW UP APPOINTMENT; EITHER CONTACT YOUR PRIMARY CARE DOCTOR, THE PHYSICIAN WHOSE NAME AND NUMBER YOU WERE GIVEN, OR RETURN TO THE ED IMMEDIATELY. Scripts Benzonatate (TESSALON PERLE) 100 Mg Capsule 1 CAP PO TID for cough, #21 CAP Prov: JOHNATHON AMBROSE MD 07/07/20 Albuterol Sulfate (ALBUTEROL SULFATE NEB SOLN) 2.5 Mg/3 Ml Vial.neb 1 VIAL NEB Q6HRS PRN for SHORTNESS OF BREATH, #25 VIAL Prov: JOHNATHON AMBROSE MD 07/07/20 JOHNATHON AMBROSE MD Jul 07, 2020 11:03
--- NOTE | 2020-07-07 11:44 | EKG ---
[facility] [address] [place] [address] Test Date: 2020-07-07 Test Time: 09:59:24 Pat Name: CHARLY SY Department: Room: Gender: M Liv[employer]: : 1950 Requested By: JOHNATHON AMBROSE Order Number: [id number] Reading MD: Measurements Intervals [place]ino Rate: 97 P: 30 SD: 146 QRS: -15 QRSD: 86 T: 56 QT: 336 QTc: 431 Interpretive Statements SINUS RHYTHM LEFT ATRIAL ABNORMALITY LEFTWARD AXIS ABNORMAL ECG RI6.02 No previous ECG available for comparison
[2020-07-07] MEDS ORDERED: ALBU2.5V5 NEB (12:45)
[2020-07-07] MEDS ORDERED: BENZ100C PO (12:45)
--- NOTE | 2020-07-09 08:44 | NUR ---
IP: Informed pt of negative COVID test. Pt verbalized understanding.
== END 2020-07-07 13:00 | disposition home or self-care (01) ==
LOC: ER 09:47
DX: B34.9 Viral infection, unspecified (principal); Z20.822 Contact with and (suspected) exposure to COVID-19; I11.9 Hypertensive heart disease without heart failure; J44.9 Chronic obstructive pulmonary disease, unspecified; F17.200 Nicotine dependence, unspecified, uncomplicated; Z88.6 Allergy status to analgesic agent
CPT/HCPCS: 36415; 71045; 80053; 82550; 83880; 84484; 85025; 87804; 93005; 94640; 99285; C9803; U0003

== ENCOUNTER → 2021-05-31 | Outpatient (CLI) | payer MEDICARE ==
[~2021-05-31] MED LIST changes: +ALBU2.5V5 NEB; +BENZ100C PO; -LISI1TAB23 PO; +LISI1TAB35 PO
--- NOTE | 2021-05-31 13:21 | KCIC ---
EXAM: Left foot, 3 views. HISTORY: Pain. COMPARISON: None. FINDINGS: 3 views of the left foot are obtained. There is no fracture, dislocation or subluxation. Th ere is no suspicious osseous lesion. There is no foreign body. There is no soft tissue calcification. IMPRESSION: No acute osseous finding. Electronically signed by: Lexy Stanford MD (05/31/2021 1:18 PM) [id number]
== END ==
LOC: KCIC 12:37
PROVIDERS: ATTEND Family Medicine
DX: M79.673 Pain in unspecified foot (principal)
CPT/HCPCS: 73630